=== PATIENT | female | born 1985 | race Caucasian/White ===

== ENCOUNTER 2018-01-08 09:56 | Day surgery (SDC) | payer MEDICAID ==
[~2018-01-08 09:56] MED LIST: PROPOFOL 1000 MG INJ; PROPOFOL 200 MG INJ
[2018-01-08 11:23] LABS: ADD MAN DIFF? NO
[2018-01-08 11:24] LABS: BASOPHILS % 0.5 % (0.0-2.0); EOSINOPHILS # 0.1 10^3/ul (0.0-0.5); EOSINOPHILS % 1.3 % (0.0-7.0); HEMATOCRIT 38.4 % (37.0-47.0); HEMOGLOBIN 12.6 g/dl (12.0-16.0); LYMPHOCYTES # 2.8 10^3/ul (0.8-2.9); LYMPHOCYTES % 49.8 % (15.0-51.0); MEAN CORPUSCULAR HEMOGLOBIN 28.6 pg (29.0-33.0); MEAN CORPUSCULAR HGB CONC 32.8 g/dl (32.0-37.0); MEAN CORPUSCULAR VOLUME 87.1 fl (82.0-101.0); MEAN PLATELET VOLUME 10.8 fl (7.4-10.4); MONOCYTE # 0.4 10^3/ul (0.3-0.9); MONOCYTES % 6.7 % (0.0-11.0); NEUTROPHIL # 2.3 10^3/ul (1.6-7.5); NEUTROPHILS % 41.7 % (39.0-77.0); PLATELET COUNT 333 10^3/UL (140-415); RED BLOOD COUNT 4.41 10^6/ul (4.20-5.40); RED CELL DISTRIBUTION WIDTH 14.2 % (11.5-14.5)
[2018-01-08 11:24] LABS: WHITE BLOOD COUNT 5.5 10^3/ul (4.8-10.8)
[2018-01-08] MEDS ORDERED: LIDOCAINE 2% (SDV) 5 ML INJ (12:59)
[2018-01-08] MEDS ORDERED: FAMOTIDINE 20 MG INJ (12:59)
[2018-01-08] MEDS ORDERED: MIDAZOLAM 1 MG/ML 2 ML INJ (12:59)
[2018-01-08] MEDS ORDERED: FENTAnyl 50 MCG/ML VIAL ×2 (12:59→14:12)
[2018-01-08] MEDS ORDERED: DEXAMETHASONE 4 MG/ML 1 ML INJ (12:59)
[2018-01-08] MEDS ORDERED: ROCURONIUM 50 MG INJ (12:59)
[2018-01-08] MEDS ORDERED: ONDANSETRON 4 MG INJ (12:59)
[2018-01-08] MEDS ORDERED: CEFAZOLIN 1 GM INJ (13:00)
[2018-01-08] MEDS ORDERED: ACETAMINOPHEN 1000MG/100ML IV 100 ML (13:05)
[2018-01-08] MEDS ORDERED: KETOROLAC 30 MG INJ (13:50)
[2018-01-08] MEDS ORDERED: GLYCOPYRROLATE 0.4 MG INJ (13:55)
[2018-01-08] MEDS ORDERED: DIPHENHYDRAMINE 50 MG INJ IV (14:00)
[2018-01-08] MEDS ORDERED: FENTAnyl 50 MCG/ML VIAL IV (14:00)
[2018-01-08] MEDS ORDERED: OXYCODONE/ACETAMINOPHEN (5/325) TAB PO ×2 (14:00)
[2018-01-08] MEDS ORDERED: LABETALOL HCL 20MG INJ IV (14:00)
[2018-01-08] MEDS ORDERED: ALBUTEROL 0.083% (NEB) 2.5 MG/3 ML AMP HHN (14:00)
[2018-01-08] MEDS ORDERED: HYDROmorphONE 1 MG/5 ML IV SYRINGE IV ×2 (14:00)
[2018-01-08] MEDS ORDERED: MEPERIDINE 25 MG INJ IV (14:00)
[2018-01-08] MEDS ORDERED: morphine (1 MG/ML) 10ML SYRINGE IV ×2 (14:00)
[2018-01-08] MEDS ORDERED: SUGAMMADEX SODIUM 200 MG/2 ML VIAL IV (14:01)
[2018-01-08] MEDS: ONDANSETRON 4 MG INJ IV (14:50)
[2018-01-08] MEDS: FENTAnyl 50 MCG/ML VIAL IV (14:50)
== END 2018-01-08 16:15 | disposition home or self-care (01) ==
LOC: SDS 09:56
DX: Z30.2 Encounter for sterilization (principal)
CPT/HCPCS: 58670; 84702; 85025; 86850; 86900; 86901